=== PATIENT | female | born 1985 | race Two or more races ===

== ENCOUNTER 2018-10-16 12:05 | Emergency (ER) | payer MEDICAID ==
[~2018-10-16] VITALS: Ht 152.4 cm; Wt 97.1 kg
[2018-10-16 13:17] VITALS: BP 139/71
== END 2018-10-16 13:43 | disposition home or self-care (01) ==
LOC: ER 12:05
DX: J01.00 Acute maxillary sinusitis, unspecified (principal); J03.90 Acute tonsillitis, unspecified

== ENCOUNTER 2018-10-17 13:30 | Emergency (ER) | payer MEDICAID ==
[~2018-10-17] VITALS: Ht 152.4 cm; Wt 97.1 kg
[2018-10-17 13:42] VITALS: BP 141/83
[2018-10-17 17:23] LABS: Basophils # (auto) 0 uL; Basophils % (auto) 0.1 % (0.0-2.0); Eosinophils # (auto) 0 uL; Hemoglobin 11.2 g/dL (12.2-16.2)
[2018-10-17 17:25] LABS: Hematocrit 36.2 % (36.0-46.0); Lymphocytes # (auto) 0.9 uL; Lymphocytes % (auto) 7.6 % (10.0-50.0); Mean Corpuscular Hemoglobin 20.5 pg (28.0-32.0); Mean Corpuscular Hgb Conc. 30.9 g/dL (32.0-36.0); Mean Corpuscular Volume 66.2 fL (80.0-100.0); Monocytes # (auto) 0.2 uL; Monocytes % (auto) 1.4 % (0.0-12.0); Neutrophils # (auto) 10.8 uL; Neutrophils % (auto) 90.9 % (37.0-80.0); Platelet Count (auto) 396 10^3/uL (140-450); Red Blood Cells 5.46 10^6/uL (4.0-5.20); Red Cell Distribution Width 19.4 % (11.8-14.3); White Blood Cell 11.9 10^3/uL (4.4-10.8)
== END 2018-10-17 18:22 | disposition home or self-care (01) ==
LOC: ER 13:33
DX: D64.9 Anemia, unspecified (principal); R05 Cough; R68.84 Jaw pain; Z88.2 Allergy status to sulfonamides
CPT/HCPCS: 36415; 71046; 85025